=== PATIENT | male | born 1995 | race Caucasian/White ===

== ENCOUNTER 2018-11-21 12:10 | Emergency (ER) | payer OTHER ==
[~2018-11-21] VITALS: Ht 162.6 cm; Wt 74.1 kg
--- NOTE | 2018-11-21 13:27 | REP ---
LEFT SHOULDER, COMPLETE: 11/21/2018: Clinical history: Trauma. Findings: Three views are provided. There is a grade 2 AC joint separation with some elevation of the clavicle and widening of the AC joint. It does not show a full width superior elevation of the clavicle in comparison to the acromion that would suggest a grade 3 injury but it is close. There is no fracture of the clavicle, ribs, scapula or humerus. No subluxation or dislocation humeral head from the glenoid. Scapula unremarkable. Impression: 1. Grade 2 separation AC joint. No fracture. 2. No subluxation or dislocation humeral head. No other finding. Electronically Signed by Guanako Ty MD 11/21/2018 04:35 P
[2018-11-21] MEDS ORDERED: NAPR-885 PO (13:59)
[2018-11-21] MEDS ORDERED: KETOROLAC 60 MG/2 ML VIAL (J1885) IM ONE (14:00)
[2018-11-21 14:12] VITALS: BP 144/86
== END 2018-11-21 14:19 | disposition home or self-care (01) ==
LOC: M ED 12:10
DX: S43.92XA Sprain of unspecified parts of left shoulder girdle, initial encounter (principal); S40.012A Contusion of left shoulder, initial encounter; V00.328A Other snow-ski accident, initial encounter; Y92.838 Other recreation area as the place of occurrence of the external cause; Y93.23 Activity, snow (alpine) (downhill) skiing, snowboarding, sledding, tobogganing and snow tubing; F17.210 Nicotine dependence, cigarettes, uncomplicated
CPT/HCPCS: 73030; 96372; 99284; J1885